=== PATIENT | male | born 1985 | race Caucasian/White ===

== ENCOUNTER 2018-03-11 15:02 | Inpatient (IN) | payer OTHER ==
[~2018-03-11] VITALS: Ht 177.8 cm; Wt 137.1 kg
[~2018-03-11 15:02] MED LIST: ATARAX,VISTARIL25 MG PO
[2018-03-11 17:42] LABS: BASOPHIL (%) 0.4 % (0-1); BASOPHIL COUNT 0.1 K/uL (0-0.1); EOSINOPHIL (%) 0.2 % (0-5); HEMATOCRIT 43.3 % (38.0-50.0); HEMOGLOBIN 16.2 G/DL (12.5-16.6); IMMATURE GRANULOCYTE (%) 0.7 % (0.0-0.7); LYMPHOCYTE (%) 10.4 % (15-42); LYMPHOCYTE COUNT 2.3 K/uL (1.0-2.8); MCH 31.5 PG (29.0-34.0); MCHC 37.4 G/DL (30.0-36.0); MCV 84.2 FL (86-99); MONOCYTE (%) 8.2 % (3-12); MONOCYTE COUNT 1.8 K/uL (0-0.8); NEUTROPHIL (%) 80.1 % (45-76); NEUTROPHIL COUNT 17.8 K/uL (1.8-6.4); PLATELET COUNT 225 K/uL (156-360); RBC DIS.WIDTH-CV 12.6 % (11.8-14.6); RBC DIS.WIDTH-SD 38.7 % (39-53); RED BLOOD COUNT 5.14 M/uL (4.00-5.50); WHITE BLOOD COUNT 22.2 K/uL (4.1-10.2)
[2018-03-11 17:44] LABS: APPEARANCE CLEAR ((CLEAR)); BILIRUBIN NEGATIVE; BLOOD NEGATIVE; COLOR YELLOW ((YELLOW)); GLUCOSE (STRIP) >=500; KETONES 20; LEUKOCYTES TRACE; NITRITE NEGATIVE; PROTEIN (STRIP) 100; UROBILINOGEN 0.2 MG/DL (0.2-1.0)
[2018-03-11 17:46] LABS: CARBON DIOXIDE (BICARBONATE) 21.1 MEQ/L (20-31)
[2018-03-11 17:51] LABS: BACTERIA RARE /HPF; EPITHELIAL CELLS RARE /HPF; MUCUS TRACE /LPF; RED BLOOD CELLS 0-5 /HPF (0-5); UCUL ADDED? YES
[2018-03-11 17:53] LABS: ALBUMIN 4.2 g/dL (3.2-4.8); CHLORIDE 101 mEq/L (99-109); POTASSIUM 4.3 mEq/L (3.7-5.4); SODIUM 134 mEq/L (136-147)
[2018-03-11 17:55] LABS: GLUCOSE 360 mg/dL (70-99)
[2018-03-11 17:56] LABS: TOTAL PROTEIN 8.2 g/dL (6.4-8.3)
[2018-03-11 17:59] LABS: ALKALINE PHOSPHATASE 112 IU/L (3-129); GFR ESTIMATE (CALCULATED) > 59 mL/min/ (58.99-99999)
[2018-03-11 18:00] LABS: UREA NITROGEN (BUN) 11 mg/dL (9-23)
[2018-03-11 18:01] LABS: AST (GOT) 32 IU/L (2-34)
[2018-03-11 18:02] LABS: ALT (GPT) 39 IU/L (3-49)
[2018-03-11 21:43] LABS: CHLORIDE 106 mEq/L (99-109); POTASSIUM 3.7 mEq/L (3.7-5.4); SODIUM 135 mEq/L (136-147)
[2018-03-11 21:45] LABS: GLUCOSE 250 mg/dL (70-99)
[2018-03-11 21:49] LABS: CREATININE 0.8 mg/dL (0.6-1.3); GFR ESTIMATE (CALCULATED) > 59 mL/min/ (58.99-99999)
[2018-03-11 21:50] LABS: UREA NITROGEN (BUN) 10 mg/dL (9-23)
[2018-03-11 23:34] VITALS: BP 141/81
[2018-03-12 03:23] VITALS: BP 122/67
[2018-03-12 06:33] LABS: MCH 30.1 PG (29.0-34.0); MCHC 34.2 G/DL (30.0-36.0); RBC DIS.WIDTH-CV 12.6 % (11.8-14.6); RBC DIS.WIDTH-SD 40.4 % (39-53); RED BLOOD COUNT 4.32 M/uL (4.00-5.50); WHITE BLOOD COUNT 14.8 K/uL (4.1-10.2)
[2018-03-12 06:36] LABS: CHLORIDE 104 MEQ/L (99-109); CREATININE 0.7 MG/DL (0.6-1.3); GFR ESTIMATE (CALCULATED) > 59 mL/min/ (58.99-99999); GLUCOSE 218 mg/dL (70-99); POTASSIUM 3.8 MEQ/L (3.7-5.4); SODIUM 134 MEQ/L (136-147); UREA NITROGEN (BUN) 12 mg/dL (9-23)
[2018-03-12 06:44] VITALS: BP 126/69
[2018-03-12 07:24] LABS: PLAT.SUFFICIENCY DECREASED; PLATELET COUNT 142 K/uL (156-360)
[2018-03-12 11:05] VITALS: BP 134/69
[2018-03-12 11:30] LABS: LACTATE DEHYDROGENASE 154 IU/L (20-246)
[2018-03-12 15:26] VITALS: BP 135/79
[2018-03-12 20:40] VITALS: BP 138/79
[2018-03-12 23:23] VITALS: BP 150/83
[2018-03-13 04:20] VITALS: BP 128/76
[2018-03-13 06:15] LABS: HEMATOCRIT 38.1 % (38.0-50.0); HEMOGLOBIN 13.1 G/DL (12.5-16.6); MCHC 34.4 G/DL (30.0-36.0); MCV 87.4 FL (86-99); PLATELET COUNT 164 K/uL (156-360); RBC DIS.WIDTH-CV 12.6 % (11.8-14.6); RBC DIS.WIDTH-SD 39.8 % (39-53); RED BLOOD COUNT 4.36 M/uL (4.00-5.50); WHITE BLOOD COUNT 11.8 K/uL (4.1-10.2)
[2018-03-13 06:32] LABS: CHLORIDE 104 MEQ/L (99-109); CREATININE 0.7 MG/DL (0.6-1.3); GFR ESTIMATE (CALCULATED) > 59 mL/min/ (58.99-99999); GLUCOSE 211 mg/dL (70-99); POTASSIUM 3.9 MEQ/L (3.7-5.4); SODIUM 134 MEQ/L (136-147); UREA NITROGEN (BUN) 14 mg/dL (9-23)
[2018-03-13 07:10] VITALS: BP 134/77
[2018-03-13 10:35] VITALS: BP 142/79
[2018-03-13 15:58] VITALS: BP 148/78
[2018-03-14 00:36] VITALS: BP 133/76
[2018-03-14 04:54] LABS: HCG Total (Tumor Marker)+ <2 mIU/mL (<5)
[2018-03-14 06:13] LABS: HEMATOCRIT 37.8 % (38.0-50.0); HEMOGLOBIN 13.4 G/DL (12.5-16.6); MCH 30.7 PG (29.0-34.0); MCHC 35.4 G/DL (30.0-36.0); MCV 86.5 FL (86-99); PLATELET COUNT 181 K/uL (156-360); RBC DIS.WIDTH-CV 12.5 % (11.8-14.6); RBC DIS.WIDTH-SD 39.7 % (39-53); RED BLOOD COUNT 4.37 M/uL (4.00-5.50); WHITE BLOOD COUNT 8.9 K/uL (4.1-10.2)
[2018-03-14 07:34] VITALS: BP 145/83
[2018-03-14 15:39] VITALS: BP 140/75
[2018-03-15 00:14] VITALS: BP 146/64
[2018-03-15 00:36] VITALS: BP 123/69
[2018-03-15 07:30] VITALS: BP 132/71
[2018-03-15 15:00] VITALS: BP 144/75
[2018-03-15 23:40] VITALS: BP 135/67
[2018-03-16 07:23] VITALS: BP 165/86
[2018-03-16] MEDS ORDERED: DOXYCYCLINE HY100 MG PO (14:32)
[2018-03-16] MEDS ORDERED: AUGMENTIN875 MG PO (14:32)
[2018-03-16] MEDS ORDERED: LEVEMIR100 UNIT/2 SC (14:33)
[2018-03-16] MEDS ORDERED: NOVOLOG 10100 UNITS/ SC (14:34)
[2018-03-16 16:22] VITALS: BP 139/76
== END 2018-03-16 18:34 | disposition home or self-care (01) | DRG 727 ==
LOC: EME 15:02 → 5EAST 22:15 → EDOF 22:15 → ENRESERV 22:17 → 5EAST 23:17
PROVIDERS: Internal Medicine; Physician Assistant
DX: N49.2 Inflammatory disorders of scrotum (principal); A41.9 Sepsis, unspecified organism; L02.214 Cutaneous abscess of groin; F33.9 Major depressive disorder, recurrent, unspecified; Z68.41 Body mass index [BMI] 40.0-44.9, adult; Q55.64 Hidden penis; B35.6 Tinea cruris; F41.9 Anxiety disorder, unspecified; I88.9 Nonspecific lymphadenitis, unspecified; L73.8 Other specified follicular disorders; N50.89 Other specified disorders of the male genital organs; E11.65 Type 2 diabetes mellitus with hyperglycemia; E66.9 Obesity, unspecified; K76.0 Fatty (change of) liver, not elsewhere classified; R91.1 Solitary pulmonary nodule; L72.8 Other follicular cysts of the skin and subcutaneous tissue; Z91.120 Patient's intentional underdosing of medication regimen due to financial hardship
CPT/HCPCS: 74177; 76870; 80048; 80048 91; 80053; 80202; 81003; 82010; 82105 90; 82803; 82948; 83036; 83605; 83615; 84702 90; 85025; 85027; 87040; 87086; 99281; 99285; J0295; J1644; J1815; J2405; J2543; J3370; J7030; J7050